=== PATIENT | male | born 1980 | race Caucasian/White ===

== ENCOUNTER 2021-07-01 12:02 | Emergency (ER) | payer OTHER, SELFPAY ==
--- NOTE | ~2021-07-01 | XR_ITS ---
EXAMINATION: XR LUMBOSACRAL SPINE CLINICAL INFORMATION: Pain post injury COMPARISON: None TECHNIQUE: Three views of the lumbosacral spine. FINDINGS: The vertebral bodies and posterior elements are normal. The disc spaces are preserved and the vertebral alignment is normal. The paraspinal soft tissues are normal. XR/XR lumbar spine 2-3V IMPRESSION: Unremarkable examination.
--- NOTE | 2021-07-01 13:12 | ED.BACK ---
HPI - Back Pain/Injury General Chief Complaint: Back Pain/Injury Stated Complaint: back injury Time Seen by Provider: 07/01/21 13:11 Source: patient Mode of arrival: ambulatory Limitations: no limitations History of Present Illness HPI Narrative: 40-year-old healthy male presents to the ER with 1 day of severe lower back pain after he injured himself at the gym last night. He reports putting away 95 lb weights and was not paying attention and lost his balance. The weight pulled him down and he felt like his spine compressed and became smaller. He feels like he broke his back. He has severe pain whenever he rotates or moves his spine. He denies any numbness, tingling, weakness, incontinence. He has not taken anything for the pain. He reports pain is also worse when he takes a deep breath and feels like it is taking his breath away. MD elicited complaint: back pain and back injury Timing: constant Severity: severe Similar Symptoms Previously: No Quality: stabbing and spasming Location: lumbar spine Radiation: none Exacerbating factors: movement, walking and deep breaths Relieving factors: immobilization Context: while lifting Associated symptoms: denies other symptoms Work related injury: No Related Data Allergies Allergy/AdvReac Type Severity Reaction Status Date / Time No Known Allergies Allergy Unverified 06/05/20 16:05 [No Known Allergies*] Review of Systems Review of Systems: Constitutional: No Fever, No Chills Cardiovascular: No Chest Pain, No SOB Respiratory: No Cough, No Sputum Gastrointestinal: No Nausea, No Vomiting, No abdominal Pain Genitourinary: No Dysuria, No Urinary Frequency, No Hematuria, No incontinence Musculoskeletal: + joint pain, + Myalgias Skin: No Skin Lesions, No rash Neuro: No Weakness, No Numbness, No Dizziness, No Headache Psych: +Anxiety/Panic Heme/Lymph: No Bruising PMFSH Past Medical History Medical History No known health problems Social History Social History Advance Directives: No Advance Directives Information Provided: No Physical Exam Vital Signs: Vital Signs: Last Vital Signs Temp 97 F 07/01/21 13:32 Pulse 82 07/01/21 13:32 Resp 18 07/01/21 13:32 BP 143/73 H 07/01/21 13:32 Pulse Ox 98 07/01/21 13:32 Body Mass Index 32.1 Appearance: Alert. Oriented X3. Slow to move. HEENT: normal external inspeciton Neck: Normal inspection. Neck supple. No cervical spinal tenderness CVS: Normal heart rate and rhythm. Pulses normal. Respiratory: No respiratory distress. Breath sounds normal. Back: middle and upper lumbar spinal tenderness with paraspinal muscle tenderness and spasm. Pain with lateral rotation to the right and left. pain with spinal flexion. Skin: Skin warm and dry. Normal skin color. Normal skin turgor. No rashes. Extremities: No lower extremity edema. Neuro: Oriented X 3. Nonfocal. Ambulates with slow but steady gait. Course Course Course Narrative: 40-year-old male presenting with severe lower back pain after he got pulled down by 95 lb weights yesterday at the gym. He is slow to move. He is tender muscle spasms on exam. He is concerned about spinal compression fracture. Lumbar x-rays have been ordered. He has no red flag symptoms of low back pain. Reevaluation(s) Reevaluation #1: Patient eloped after x-rays were obtained. Critical Care Time Critical Care Time Critical Care Time: No Discharge Plan Discharge Clinical Impression: Acute lumbar myofascial strain Patient Disposition: Elopement Discharge Date/Time: 07/01/21 14:41
[2021-07-01 13:32] VITALS: BP 143/73; PULSE 82; RESP 18; TEMP 36.1; O2SAT 98; BMI 32.1
[2021-07-01] MEDS: Ketorolac Tromethamine 15 MG/ML VIAL 30 MG IM (13:44)
== END 2021-07-01 14:41 | disposition left against medical advice (07) ==
PROVIDERS: Emergency Provider Internal Medicine; PCP Internal Medicine
DX: S39.012A Strain of muscle, fascia and tendon of lower back, initial encounter (principal); X58.XXXA Exposure to other specified factors, initial encounter; Y93.B3 Activity, free weights; Y92.39 Other specified sports and athletic area as the place of occurrence of the external cause; Y99.9 Unspecified external cause status
CPT/HCPCS: 72100; 96372; 99283; 99284; J1885

== ENCOUNTER 2023-02-03 22:55 | Emergency (ER) | payer OTHER, SELFPAY ==
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
--- NOTE | ~2023-02-03 | CT_ITS ---
EXAMINATION: NONCONTRAST HEAD CT NONCONTRAST CERVICAL SPINE CT INDICATION INFORMATION: Head injury COMPARISON: None TECHNIQUE: Separate noncontrast CT examinations of the head and cervical spine were performed. Coronal and sagittal images were created for each examination at the technologist workstation. This CT examination was performed using dose optimization techniques as appropriate, variously including the following: *Automated exposure control *Adjustment of mA and/or kV according to patient size (this includes techniques or standardized protocols for targeted exams where dose is matched to indication/reason for exam; i.e. extremities or head) *Use of iterative reconstruction technique DLP: 1283 mGy-cm FINDINGS: Head: There is no evidence of acute intracranial hemorrhage or territorial infarction. No abnormal mass effect or midline shift is seen. Mcgregor to white matter differentiation is well preserved. No extra-axial fluid collections are identified. No hydrocephalus. No significant volume loss. There is no abnormal attenuation within the brain parenchyma. No acute osseous or soft tissue abnormality. The mastoid air cells and visualized portions of the paranasal sinuses are well aerated. Cervical spine: There is anatomic alignment of the vertebral bodies and posterior elements. The atlantoaxial and atlantooccipital articulations are intact. Vertebral body heights are maintained. Endplate osteophytes present from C4 through C7 with prominent bilateral uncovertebral arthrosis at C5-C6 and C6-C7. This leads to at least moderate left neural foraminal narrowing on the left at C5-C6 and moderate to severe left neural foraminal narrowing at C6-C7. No evidence of acute fracture. No prevertebral soft tissue swelling. Visualized portions of the lung apices are unremarkable. The thyroid gland is unremarkable. CT/CT cervical spine wo IV con IMPRESSION: * No acute intracranial findings. * No acute fracture or malalignment of the cervical spine.
[2023-02-03 22:55] VITALS: BP 160/80; BP 164/78; PULSE 106; PULSE 98; RESP 17; O2SAT 98; O2SAT 99; BMI 31.0
[2023-02-03 23:40] VITALS: BP 145/96; PULSE 85; RESP 16; TEMP 36.9; O2SAT 96
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
== END 2023-02-04 01:20 | disposition home or self-care (01) ==
PROVIDERS: Emergency Provider Emergency Medicine Emergency Medical Services
DX: S39.012A Strain of muscle, fascia and tendon of lower back, initial encounter (principal); S13.4XXA Sprain of ligaments of cervical spine, initial encounter; V43.52XA Car driver injured in collision with other type car in traffic accident, initial encounter; Y93.89 Activity, other specified; Y92.410 Unspecified street and highway as the place of occurrence of the external cause; Y99.9 Unspecified external cause status
CPT/HCPCS: 70450; 71250; 72125; 74176; 99284

== ENCOUNTER 2025-03-11 05:36 | Emergency (ER) | payer OTHER, SELFPAY ==
--- NOTE | 2025-03-11 | ECG_ITS ---
Test Reason : CHEST PAIN/PRESSURE Blood Pressure : */* mmHG Vent. Rate : 80 BPM Atrial Rate : 80 BPM P-R Int : 156 ms QRS Dur : 102 ms QT Int : 350 ms P-R-T Axes : 41 52 -8 degrees QTcB Int : 403 ms Normal sinus rhythm Cannot rule out Inferior infarct , age undetermined Abnormal ECG No previous ECGs available Referred By: Devon Seaman Electronically Signed By: BENITO VERMA
[2025-03-11 05:40] VITALS: BP 145/92; PULSE 87; RESP 18; TEMP 36.6; O2SAT 95; BMI 32.9
--- OUTSIDE RECORDS SUMMARY | 2025-03-11 05:52 | XMS_ITS | Clinical Summary ---
Author Organization [employer] [facility] ity Address [address] [place] [address] Care Team Providers Care Wash Tank Tender Name Role Phone Neo Engel MD Primary Care Provider Allergies No known active allergies Medications albuterol HFA (PROAIR HFA ; PROVENTIL HFA ; VENTOLIN HFA) 90 mcg/actuation inhaler Inhale 2 Puffs into the lungs 4 times daily as needed for Cough, Wheezing or Shortness of Breath. 1 Active valACYclovir (VALTREX) 1 gram tablet Take 1 Tablet by mouth 3 times daily. 3 Active Active Problems Problem Noted Date Diagnosed Date Exercise-induced asthma 09/14/2024 Colitis 02/15/2018 Overview (09/14/2024): S/p biopsy 02/06/2018 during hospitalization 02/01/2018. +ve for chronic active colitis Positive urine drug screen 02/09/2018 Overview (09/14/2024): Opiates ([facility]) Cervical radiculopathy 06/21/2017 Overview (09/14/2024): Xray with mild arthritis, follows with physiatry ; s/p corticosteroid injection. MRI pending Genital herpes simplex 02/11/2016 Immunizations Name Administration Dates Next Due Tdap Tetanus diptheria acell ular pertussis (Boostrix; Adacel) 7yo and older 12/29/2011 Surgical History Surgery Date Site/Laterality Comments APPENDECTOMY 1992 PROCEDURE: OR APPENDECTOMY Medical History Medical History Date Comments Genital herpes simplex 02/11/2016 DX:Genita l herpes simplex Exercise-induced asthma DX:Exerc ise-induced asthma Cervical radiculopathy 06/21/2017 DX:Cervic al radiculopathy; COMMENT: Xray with mild arthritis, follows with physiatry ; s/p corticosteroid injection. MRI pending Positive urine drug screen 02/09/2018 DX:Po sitive urine drug screen; COMMENT: Opiates ([facility]) Colitis 02/15/2018 DX:Colitis; COMM ENT: S/p biopsy 02/06/2018 during hospitalization 02/01/2018. +ve for chronic active colitis Family History Medical History Relation Name Comments Hypertension Father ? MD Other: DRUG OVERDOSE Mother Relation Name Status Comments Father Alive Mother (Age 39) Social History Tobacco Use Types Packs/Day Years Used Date Smoking Tobacco: Never Smokeless Tobacco: Never Alcohol Use Standard Drinks/Week Comments Yes 0 (1 standard drink = 0.6 oz pur e alcohol) Sex and Gender Information Value Date Recorded Sex Assigned at Not on file Legal Sex Male 10:48 PM EST Gender Identity Not on file Sexual Orientation Not on file Obstetrics History Last Filed Vital Signs Vital Sign Reading Time Taken Comments Blood Pressure 124/79 06/22/2023 11:17 AM EDT Pulse 75 06/22/2023 11:17 AM EDT Temperature - - Respiratory Rate - - Oxygen Saturation - - Inhaled Oxygen Concentration - - Weight 96.5 kg (212 lb 12.8 oz) 023 11:17 AM EDT Height 172.7 cm (5' 8 ) 06/22/2023 11:1 7 AM EDT Body Mass Index 32.36 06/22/2023 11:17 AM EDT Plan of Treatment Upcoming Encounters Date Type Department Care Team (Late st Contact Info) Description 08/27/2025 8:00 AM EST Office Visit Adult Medicine [address] [id number] Neo Engel MD [address] [place] [address] Health Maintenance Due Date Last Done Comments Hepatitis B Vaccines (1 of 3 - 19+ 3-dose series) 1998 Pneumococcal Vaccine: Pediat rics (0 to 5 Years) and At-Risk Patients (6 to 64 Years) (1 of 2 - PCV) 1998 DTaP,Tdap,and Td Vaccines (2 - Td or Tdap) 12/28/2021 12/29/2011 Colorectal Cancer Screening: Colonoscopy 08/29/2022 Depression Screening 08/29/2022 Social Influencers of Health Screening 08/29/2022 COVID-19 Vaccine (1 - 2023-2 5 season) 2024 Influenza Vaccine (Season Ended) 2025 Cholesterol Screening (Lipid Panel) 02/24/2028 02/23/2023 HIV Screening Completed 10/05/2012 Hepatitis C Screening Completed 10/05/2012 HIB Vaccines Aged Out No longer eligi ble based on patient's age to complete this topic HPV Vaccines Aged Out No longer eligi ble based on patient's age to complete this topic Hepatitis A Vaccines Aged Out No long er eligible based on patient's age to complete this topic IPV Vaccines Aged Out No longer eligi ble based on patient's age to complete this topic MMR Vaccines Aged Out No longer eligi ble based on patient's age to complete this topic Meningococcal ACWY Vaccine Aged Out N o longer eligible based on patient's age to complete this topic Meningococcal B Vaccine Aged Out No l onger eligible based on patient's age to complete this topic RSV Immunization Patients Un kenney 20 months Aged Out No longer eligible b ased on patient's age to complete this topic Varicella Vaccines Aged Out No longer eligible based on patient's age to complete this topic Procedures Procedure Name Priority Date/Time Associated Diagnosis Comments LIPID PANEL Routine 02/23/2023 HEPATITIS C SCREENING Routine 10/05/2012 HIV SCREENING Routine 10/05/2012 from Last 3 Months or Most Recently Relevant to Health Maintenance Results * Lipid panel (02/23/2023) LDL/HDL Ratio 3 0 - 4 Triglycerides 45 0 - 150 mg/dL Cholesterol 144 0 - 200 mg/dL HDL 42 >=40 mg/dL LDL Cholesterol 93 0 - 100 mg/dL Blood Venous blood specimen / Unknown Historical Provider LAB BLOOD ORDERABLES Felicity l Result * HIV Screening (10/05/2012) HIV Screening Abstracted us Historical Provider HEALTH MAINTENANCE Final Result * Hepatitis C Screening (10/05/2012) Hepatitis C Screening Abstracted us Historical Provider HEALTH MAINTENANCE Final Result from Last 3 Months or Most Recently Relevant to Health Maintenance Insurance [facility] [employer] Care Teams Wash Tank Tender Relationship Specialty Start Date End Date Neo Engel MD [address] [place] [address] PCP - General Internal Medicine 07/19/22
[2025-03-11] MEDS: 0.9 % Sodium Chloride 1,000 ML 999 ML IV (06:19)
[2025-03-11] MEDS: chlorproMAZINE HCl 25 MG in 0.9 % Sodium Chloride 50 ML 51 MG IV (06:20)
[2025-03-11] MEDS: Famotidine/PF 20 MG/2 ML VIAL IVPUSH (06:21)
[2025-03-11 06:55] LABS: MANUAL DIFF FLAG NO
--- NOTE | 2025-03-11 06:58 | ED_ITS ---
HPI - General Adult General Chief complaint: General Medical Stated complaint: severe hiccups Time Seen by Provider: 03/11/25 05:55 Source: patient Mode of arrival: ambulatory Limitations: no limitations History of Present Illness ED Provider: HPI narrative: Patient otherwise healthy been having hiccups for last 2 days unable to eat much feel discomfort in upper abdominal no vomiting no fever no chills Related Data Previous Rx's ?Medication ?Instructions ?Recorded omeprazole 40 mg capsule,delayed 40 mg PO DAILY #30 ca ps 03/11/25 release ondansetron 4 mg disintegrating 4 mg PO Q6-8H PRN naus ea and 03/11/25 tablet vomiting #7 tabs Allergies Allergy/AdvReac Type Severity Reaction Status Date / Time No Known Allergies (No Known Allergy Verified 03/11/25 05:41 Allergies*) Review of Systems 2 Review of Systems: Yes all other systems are reviewed and are negative [facility] Past Medical History Medical History No known health problems Social History Social History Alcohol intake: current Alcohol intake frequency: 0-2 drinks per day Alcohol type: beer Smoked in Last 30 Days: Yes Use of substances other than those prescribed or required for medical reasons: Yes Substance Use Type: Opiates Advance Directives: No Advance Directives Information Provided: No Do you have a plan to hurt others: No Plan Physical Exam ED Vital Signs: Vital Signs - 24 hr 03/11/25 05:40 Temperature 98 F Pulse Rate 87 Respiratory Rate 18 Blood Pressure 145/92 H Pulse Oximetry 95 Oxygen Delivery Method Room Air BMI result Body Mass Index 32.9 Appearance: Alert. Oriented X3. No acute distress. Active hiccups+ Eyes: PERRLA, No Nystagmus ENT: Pharynx normal. Oral Mucosa moist Neck: Normal inspection. Neck supple. CVS: Normal heart rate and rhythm. Pulses normal. Respiratory: No respiratory distress. Equal air entry bilateral, no wheezing/rales/rhonchi Abdomen: Soft and nontender. Bowel sounds are present, no mass palpable, no CVA tenderness Skin: Skin warm and dry. Normal skin color. Normal skin turgor. Extremities: No lower extremity edema. No calf tenderness Neuro: Oriented X 3. No motor deficit. No sensory deficit.No cerebellar signs , cranial nerves II-XII intact Medications Administered Discontinued Medications Generic Name Dose Route Start Last Admin Trade Name Jose PRN Reason Stop Dose Admin Famotidine 20 mg 03/11/25 05:56 03/11/25 06:21 Famotidine/Pf 20 Mg/2 Ml Vial IVPUSH 03/11/25 05:57 20 mg ONCE ONE Administration Chlorpromazine HCl 25 mg/ 51 mls @ 51 mls/hr 03/11/25 05:55 03/11/25 07:41 Sodium Chloride IV 03/11/25 06:54 Infused ONCE ONE Infusion Sodium Chloride 1,000 mls @ 999 mls/hr 03/11/25 05:56 03/11/25 07:41 Ns IV 03/11/25 06:56 Infused .Q1H1M ONE Infusion Medical Decision Making Medical Decision Making [facility] Narrative: Patient with hiccups with epigastric area pain responded to Thorazine discharge patient home on PPI labs were stable Differential Diagnosis Differential Diagnoses: The differential diagnosis associated with the presentation includes Lab Data [facility] Lab Attestation statement: I reviewed the patient's lab results. 03/11/25 06:19 03/11/25 06:19 Labs: Lab Results 03/11/25 Range/Units 06:19 WBC 6.9 (4.8-10.8) X10*3/uL RBC 6.01 H (4.60-5.80) X10*6/uL Hgb 16.7 (14.0-18.0) g/dl Hct 50.2 (42.0-52.0) % MCV 83.5 (80.0-98.0) fL MCH 27.8 (27.0-33.0) pg MCHC 33.3 (31.0-36.0) g/dl RDW 14.6 (11.0-16.0) % Plt Count 269 (160-400) X10*3/uL MPV 10.2 (9.4-12.4) fL Immature Gran % (Auto) 0.1 (0.0-0.4) % Neut % (Auto) 59.1 (45-73) % Lymph % (Auto) 23.3 (20-40) % Gregory % (Auto) 9.7 (2-11) % Eos % (Auto) 7.1 H (0-4) % Baso % (Auto) 0.7 (0-2) % Lymph # (Auto) 1.6 (1.2-4.9) X10*3/uL Gregory # (Auto) 0.7 (0.1-1.2) X10*3/uL Eos # (Auto) 0.5 H (0.0-0.4) X10*3/uL Baso # (Auto) 0.1 (0.0-0.2) X10*3/uL Abs Immat Gran (auto) 0.01 (0.00-0.03) X10*3/uL Absolute Neuts (auto) 4.1 (2.0-8.3) x10*3/uL Absolute Nucleated RBC 0.000 (0.0-0.012) X10*3/uL Nucleated RBC % (auto) 0.0 (0.0-0.2) /100WBC Sodium 136 (135-145) mmol/L Potassium 4.2 (3.3-5.1) mmol/L Chloride 102 (96-108) mmol/L Carbon Dioxide 26 (22-29) mmol/L Anion Gap 12 (12-20) BUN 10 (9-16) mg/dL Creatinine 1.14 (0.5-1.4) mg/dL Estim Creat Clear Calc 90.0 Estimated GFR > 60 Random Glucose 126 H (60-115) mg/dL Calcium 8.9 (8.4-10.2) mg/dL Total Bilirubin 0.6 (0.0-1.0) mg/dL AST 64 H (5-37) U/L ALT 47 H (0-40) U/L Alkaline Phosphatase 38 L (39-117) U/L Total Protein 7.2 (6.5-8.0) g/dL Albumin 3.9 (3.5-5.0) g/dL Lipase 59 (8-78) U/L Discharge Plan Discharge Clinical Impression: Intractable hiccoughs Patient Disposition: Home, Self-Care Instructions: Hiccups (ED) Additional Instructions: Drink plenty of fluids Take Prilosec daily Maalox as needed Follow up with PCP if not better Prescriptions: New omeprazole 40 mg capsule,delayed release(DR/EC) 40 mg PO DAILY Qty: 30 0RF ondansetron 4 mg tablet,disintegrating 4 mg PO Q6-8H PRN (Reason: nausea and vomiting) Qty: 7 0RF Interventions: ED Discharge Assessment Last Done: 03/11/25 07:39 Discharge Date/Time: 03/11/25 07:40 Print Language: Nepali
[2025-03-11 07:05] LABS: Basophils Absolute Auto 0.1 X10*3/uL (0.0-0.2); Basophils Percent Auto 0.7 % (0-2); Eosinophils Absolute Auto 0.5 X10*3/uL (0.0-0.4); Eosinophils Percent Auto 7.1 % (0-4); Hematocrit 50.2 % (42.0-52.0); Hemoglobin 16.7 g/dl (14.0-18.0); Imm Gran Abs Auto 0.01 X10*3/uL (0.00-0.03); Imm Gran Pct Auto 0.1 % (0.0-0.4); Lymphocytes Absolute Auto 1.6 X10*3/uL (1.2-4.9); Lymphocytes Percent Auto 23.3 % (20-40); Mean Corpuscular HGB Conc 33.3 g/dl (31.0-36.0); Mean Corpuscular Hemoglobin 27.8 pg (27.0-33.0); Mean Corpuscular Volume 83.5 fL (80.0-98.0); Mean Platelet Volume 10.2 fL (9.4-12.4); Monocytes Absolute Auto 0.7 X10*3/uL (0.1-1.2); Monocytes Percent Auto 9.7 % (2-11); Neutrophils Absolute Auto 4.1 x10*3/uL (2.0-8.3); Neutrophils Percent Auto 59.1 % (45-73); Platelet Count 269 X10*3/uL (160-400); Red Blood Count 6.01 X10*6/uL (4.60-5.80); Red Cell Distribution Width 14.6 % (11.0-16.0); White Blood Count 6.9 X10*3/uL (4.8-10.8)
[2025-03-11 07:16] LABS: Alanine Aminotransferase 47 U/L (0-40); Albumin Level 3.9 g/dL (3.5-5.0); Alkaline Phosphatase 38 U/L (39-117); Anion Gap 12 (12-20); Aspartate Amino Transferase 64 U/L (5-37); Bilirubin Total 0.6 mg/dL (0.0-1.0); Blood Urea Nitrogen 10 mg/dL (9-16); Calcium 8.9 mg/dL (8.4-10.2); Carbon Dioxide 26 mmol/L (22-29); Chloride 102 mmol/L (96-108); Estimated Glomerular Filt Rate > 60; Glucose Random 126 mg/dL (60-115); Lipase 59 U/L (8-78); Potassium 4.2 mmol/L (3.3-5.1); Sodium 136 mmol/L (135-145); Total Protein 7.2 g/dL (6.5-8.0)
[2025-03-11 07:39] VITALS: BP 145/92; PULSE 87; RESP 18; TEMP 36.6; O2SAT 95
== END 2025-03-11 07:40 | disposition home or self-care (01) ==
PROVIDERS: Emergency Provider Internal Medicine; PCP Internal Medicine
DX: R06.6 Hiccough (principal); R10.2 Pelvic and perineal pain; R07.89 Other chest pain; R10.13 Epigastric pain; Z79.899 Other long term (current) drug therapy
CPT/HCPCS: 36415; 80053; 83690; 85025; 93005; 96361; 96374; 96375; 99284; J1308; J3230

== ENCOUNTER → 2025-03-11 06:05 | Outpatient (BNV) | payer OTHER, SELFPAY | PROVIDERS: Emergency Provider Internal Medicine; PCP Internal Medicine; Visit Provider Internal Medicine | DX: R94.31 Abnormal electrocardiogram [ECG] [EKG] (principal); R07.89 Other chest pain | CPT/HCPCS: 93010 ==